=== PATIENT | male | born 1960 | race Two or more races ===

== ENCOUNTER 2022-07-16 15:59 | Emergency (ER) | payer MEDICAID ==
[~2022-07-16] VITALS: Ht 165.1 cm; Wt 51.7 kg
[2022-07-16 16:11] VITALS: BP 99/58
--- NOTE | 2022-07-16 16:38 | NUR ---
MD PETERSON AT BEDSIDE FOR EVALUATION
[2022-07-16] MEDS ORDERED: ONDANSETRON 4 MG/2 ML VIAL IVP ONE (16:45)
[2022-07-16] MEDS ORDERED: KETOROLAC 30 MG/ML VIAL IVP ONE (16:45)
[2022-07-16 17:09] LABS: BASOPHILS % (AUTO) 0.8 % (0.0-2.0); EOSINOPHILS # (AUTO) 0.2 K/uL (0-0.4); EOSINOPHILS % (AUTO) 3.2 % (0.0-4.0); HEMOGLOBIN 7.9 g/dL (12.0-18.0); LYMPHOCYTES # (AUTO) 0.7 K/uL (2.0-11.5); LYMPHOCYTES % (AUTO) 14.6 % (20.5-51.1); MEAN CORPUSCULAR HEMOGLOBIN 21 pg (27-31); MEAN CORPUSCULAR HGB CONC 29 g/dL (33-37); MEAN CORPUSCULAR VOLUME 71.3 fL (80-94); MONOCYTES # (AUTO) 0.4 K/uL (0.8-1.0); MONOCYTES % (AUTO) 8.3 % (1.7-9.3); NEUTROPHILS # (AUTO) 3.6 K/uL (1.8-7.7); NEUTROPHILS % (AUTO) 73.1 % (42.2-75.2); PLATELET COUNT (AUTO) 151 K/uL (140-450); RED BLOOD CELL COUNT(AUTO) 3.78 MIL/uL (4.20-6.10); RED CELL DISTRIBUTION WIDTH 20.7 % (11.6-13.7)
[2022-07-16] MEDS ORDERED: LACT-103 PO (17:19)
--- NOTE | 2022-07-16 17:21 | NUR ---
URINE GIVEN TO PHLEB
[2022-07-16 17:28] LABS: ANION GAP 13.9 (8-16); CARBON DIOXIDE 19.9 mmol/L (21-32); CREATININE 1.6 mg/dL (0.6-1.3); POTASSIUM 3.8 mmol/L (3.5-5.1); TOTAL BILIRUBIN 0.3 mg/dL (0.0-1.0)
[2022-07-16 17:33] LABS: APPEARANCE,URINE CLEAR (CLEAR); BILIRUBIN,URINE 1+ (NEGATIVE); BLOOD, URINE NEGATIVE (NEGATIVE); COLOR,URINE YELLOW (YELLOW); LEUKOCYTE ESTERASE ,URINE NEGATIVE (NEGATIVE); NITRITE, URINE NEGATIVE (NEGATIVE); PH,URINE 5.5 (5.0-9.0); UGLUCOSE NEGATIVE (NEGATIVE)
[2022-07-16 17:55] VITALS: BP 111/60
--- NOTE | 2022-07-16 17:55 | NUR ---
Patient discharged with v/s stable. Written and verbal after care instructions FOR CONSTIPATION AND ABD PAIN given and explained. Patient alert, oriented and verbalized understanding of instructions. Ambulatory with steady gait. All questions addressed prior to discharge. ID band removed. Patient advised to follow up with PMD. Rx of LACTULOSE given. Opportunity to ask questions provided and answered.
== END 2022-07-16 17:55 | disposition home or self-care (01) ==
LOC: MED 15:59
DX: K59.00 Constipation, unspecified (principal); I10 Essential (primary) hypertension; Z79.899 Other long term (current) drug therapy
CPT/HCPCS: 36415; 74176; 80053; 81003; 83690; 85025; 96374; 96375; 99285; J1885; J2405